=== PATIENT | female | born 1980 | race Two or more races ===

== ENCOUNTER 2022-10-12 11:37 | Emergency (ER) | payer MEDICARE, OTHER ==
[~2022-10-12] VITALS: Ht 172.7 cm; Wt 113.4 kg
--- NOTE | 2022-10-12 11:46 | NUR ---
VISUAL ACTIVITY DONE, UNABLE TO WEAR CONTACTS,READING GLASSES UNAVAILABLE- ONLY LIGHT PERCEPTION IN AFFECTED EYE
[2022-10-12] MEDS ORDERED: OFLO5DRO RIGHTEYE (12:05)
--- NOTE | 2022-10-12 12:13 | NUR ---
Patient discharged to home in stable condition. Written and verbal after care instructions given. Patient verbalizes understanding of instruction.
[2022-10-12 12:14] VITALS: BP 151/98
== END 2022-10-12 12:14 | disposition home or self-care (01) ==
LOC: ER 11:44
DX: H10.9 Unspecified conjunctivitis (principal); Z88.8 Allergy status to other drugs, medicaments and biological substances

== ENCOUNTER 2024-03-01 10:00 | Emergency (ER) | payer MEDICARE, OTHER ==
[~2024-03-01] VITALS: Ht 172.7 cm; Wt 99.8 kg
[~2024-03-01 10:00] MED LIST: OFLO5DRO RIGHTEYE
[2024-03-01 10:19] VITALS: BP 162/90; TEMP 98.4; O2SAT 100
[2024-03-01] MEDS ORDERED: OFLO5DRO6 EACHEYE (10:29)
== END 2024-03-01 10:47 | disposition home or self-care (01) ==
LOC: ER 10:00
DX: H10.9 Unspecified conjunctivitis (principal); Z88.0 Allergy status to penicillin; Z88.8 Allergy status to other drugs, medicaments and biological substances

== ENCOUNTER 2024-11-11 16:32 | Emergency (ER) | payer MEDICARE, OTHER ==
[~2024-11-11] VITALS: Ht 172.7 cm; Wt 113.4 kg
[~2024-11-11 16:32] MED LIST changes: +OFLO5DRO6 EACHEYE
[2024-11-11 17:48] VITALS: BP 151/93; TEMP 98.1
[2024-11-11] MEDS ORDERED: DOXY100C2 PO (18:07)
[2024-11-11] MEDS ORDERED: NAPR-1009 PO (18:07)
[2024-11-11] MEDS ORDERED: PRED20TA PO (18:10)
[2024-11-11 18:17] VITALS: O2SAT 98
== END 2024-11-11 18:17 | disposition home or self-care (01) ==
LOC: ER 16:40
DX: K04.7 Periapical abscess without sinus (principal); Z88.0 Allergy status to penicillin; Z88.1 Allergy status to other antibiotic agents; Z79.899 Other long term (current) drug therapy